=== PATIENT | male | born 1960 | race Caucasian/White ===

== ENCOUNTER 2023-02-26 19:36 | Observation (INO) | payer OTHER, SELFPAY ==
[2023-02-26] VITALS (9 sets, daily range): BP systolic 107–124; BP diastolic 59–68; PULSE 67–90; RESP 17–21; TEMP 36.8–37.8; O2SAT 91–97; BMI 25.7; BMI 28.1
--- NOTE | 2023-02-26 20:04 | DI.CT.S_ITS ---
PROCEDURE: CT ABDOMEN PELVIS W CON INDICATIONS: acute RLQ pain TECHNIQUE: After the administration of IV contrast, axial sections were acquired from the lung bases to the pubic symphysis. Coronal and sagittal reformats were performed. For radiation dose reduction, the following was used: automated exposure control, adjustment of mA and/or kV according to patient size. COMPARISON: None. FINDINGS: Image quality: Excellent. Lung bases: There is dependent atelectasis bilaterally. Heart: Heart is normal in size. ABDOMEN: Liver: No mass lesion. Gallbladder: The gallbladder is distended with multiple dependent stones, wall thickening, and pericholecystic fat stranding consistent with acute cholecystitis. Biliary ducts: No biliary ductal dilatation. Pancreas: Unremarkable. Spleen: Normal in size. Adrenal Glands: No adrenal nodules. Kidneys and Ureters: No hydronephrosis. Stomach and Bowel: Stomach, small bowel loops, and colon are normal in caliber and wall thickness. The appendix is normal. Peritoneum: No abnormal intraperitoneal fluid. No free air. Ventral Wall: No hernia. Abdominal Nodes: No retroperitoneal or mesenteric adenopathy by size criteria. Vessels: Aorta and inferior vena cava are normal in size. PELVIS: Pelvic Organs: Unremarkable. Bladder: Unremarkable. Pelvic Nodes: No enlarged lymph nodes. Miscellaneous: No inguinal hernias are seen. Bones: Visualized osseous structures demonstrate no suspicious focal lesions. IMPRESSION: 1. Gallbladder distention with multiple gallstones, wall thickening, and pericholecystic fat stranding consistent with acute cholecystitis. 2. No evidence of appendicitis. Findings discussed with Dr. Morgan on 02/26/2023 at 9:02 p.m.. Dictated by: Francois Donaldson M.D. on 02/26/2023 at 21:00 Approved by: Francois Donaldson M.D. on 02/26/2023 at 21:03
--- NOTE | 2023-02-26 21:02 | ED.GENADULT ---
HPI - General Adult General Chief complaint: Abdominal Pain Stated complaint: RLQ pain vomitting Time Seen by Provider: 02/26/23 20:03 Source: patient and EMS Mode of arrival: other History of Present Illness HPI narrative: 62-year-old gentleman who lives on [place] with no significant medical history and no prescription medications presents to the [place] [facility] complaining of right lower quadrant abdominal pain since 3:00 a.m. in the morning. He states that he is never had similar pain, not associated with fever, has been passing gas and having regular bowel movements. No nausea or vomiting. He notes no new foods, medications and no recent extensive travel. Blood work was done and notable for leukocytosis with white count at 20.8. Was felt that a CT scan would be most appropriate however was not available in [place] so has been flown to [facility] for further evaluation. Related Data Allergies Allergy/AdvReac Type Severity Reaction Status Date / Time No Known Drug Allergies Allergy Verified 02/26/23 21:30 Review of Systems Review of Systems Narrative: Pertinent positive and negative findings as per HPI Patient History Social History household members: spouse Smoking Status: Never smoker Smoking Status: Never smoker alcohol intake frequency: a few times a month Alcohol type: beer Substance Use Type: marijuana Exam Initial Vital Signs Initial Vital Signs: Vital Signs Pulse Rate 71 02/26/23 19:42 Pulse Oximetry 94 02/26/23 19:42 General: Healthy appearing, in mild distress. Able to give a complete and coherent history. Well-nourished well-developed HEENT: Moist mucous membranes, normal sclera with reactive pupils, Neck: No JVD, supple Respiratory: Lungs are clear to auscultation, no wheezing no rales no rhonchi. Full and symmetrical air movement Cardiac: Regular rate and rhythm no murmurs no bruits Abdomen: Soft, minimally tender at this time, no guarding,, good bowel tones, no flank pain Skin: Warm and dry, no rashes Neurologic: Grossly neurologically intact with no obvious asymmetries or abnormalities Extremities: No trauma, well perfused Psych: Cooperative, appropriate insight and affect Course Orders Ordered: Acetaminophen (Acetaminophen 325 Mg Tablet) 650 mg PO Q6H RAMONA Last Admin: 02/27/23 03:21 Dose: 650 mg Documented By: Admin: 02/26/23 23:05 Dose: Not Given Documented By: DL Celecoxib (Celecoxib 200 Mg Capsule) 200 mg PO BID [facility] Last Admin: 02/26/23 23:05 Dose: Not Given Documented By: DL Gabapentin (Gabapentin 300 Mg Capsule) 300 mg PO BID [facility] Last Admin: 02/26/23 23:06 Dose: Not Given Documented By: DL Hydromorphone HCl (Hydromorphone 0.5 Mg Inj) 0.5 mg IV Q2H PRN PRN Reason: Pain, Severe (7-10) Sodium Chloride (Normal Saline 0.45%) 1,000 mls @ 100 mls/hr IV CONT [facility] Last Admin: 02/27/23 01:06 Dose: 100 mls/hr Documented By: ILANA Piperacillin Sod/Tazobactam (Sod 3.375 gm/ Sodium Chloride) 100 mls @ 25 mls/hr IV Q8H [facility] Last Admin: 02/27/23 02:52 Dose: Not Given Documented By: ILANA Naloxone HCl (Naloxone 0.4 Mg/Ml Vial) 0.2 mg IV Q2MIN PRN PRN Reason: Opiate Reversal Ondansetron HCl (Ondansetron 4 Mg/2 Ml Inj) 4 mg IV Q8HR PRN PRN Reason: Nausea And Vomiting Oxycodone HCl (Oxycodone Ir 5 Mg Tablet) 5 mg PO Q3H PRN PRN Reason: Pain, Moderate (4-6) Discontinued Medications Piperacillin Sod/Tazobactam (Sod 4.5 gm/ Sodium Chloride) 100 mls @ 200 mls/hr IV NOW ONE Stop: 02/26/23 22:14 Last Infusion: 02/27/23 01:06 Dose: 0 mls/hr Documented By: Infusion: 02/26/23 22:39 Dose: 200 mls/hr Documented By: Admin: 02/26/23 22:15 Dose: 200 mls/hr Documented By: TEE Vital Signs Vital signs: Vital Signs - 8 hr 02/26/23 19:47 02/26/23 19:42 02/26/23 20:00 Temperature 98.4 F Pulse Rate 67 71 Respiratory Rate 17 Blood Pressure 124/67 116/68 Pulse Oximetry 94 94 Oxygen Delivery Method Room Air 02/26/23 20:00 02/26/23 20:30 02/26/23 20:30 Temperature Pulse Rate 70 72 Respiratory Rate 21 21 Blood Pressure 110/59 L Pulse Oximetry 94 91 Oxygen Delivery Method Room Air 02/26/23 21:00 02/26/23 21:00 Temperature Pulse Rate 68 Respiratory Rate 21 Blood Pressure 112/59 L Pulse Oximetry 93 Oxygen Delivery Method Room Air Medical Decision Making MDM Narrative Medical decision making narrative: CC: Significant abdominal pain, right lower quadrant for my initial evaluation without acute surgical abdomen. This is a new problem uncertain diagnosis with significant complicated prognosis potential Complicating co-morbidities: BPH Data collected from: patient, Social determinants of health that may influence the patients condition: Patient does live on Saturday so accessing medical care can be a bit more challenging Medical records reviewed: Notes including lab studies from [place] [facility] are reviewed Differential considered: Acute appendicitis, bowel obstruction, volvulus, cholecystitis Exam documented above, pertinent findings include: Minor tenderness in the right lower quadrant, appears fairly comfortable at this point and notes pain has been coming in waves. Lab Test results independently reviewed as above. Pertinent findings: Labs done prior to arrival include CBC with leukocytosis 20.8. 87.2% neutrophils. Are unremarkable. AST is 43, ALT is 34, alk-phos 68, bilirubin is 1.0. Lactic acid is normal at 1.6. Imaging studies independently reviewed: CT scan shows gallbladder distention with multiple gallstones, wall thickening and pericholecystic fat stranding consistent with acute cholecystitis. There is no biliary ductal dilatation. Pancreas is unremarkable. Consultations: Dr. Hansen, general surgery. She will admit the patient for his acute cholecystitis with anticipation of cholecystectomy tomorrow Treatments: Zosyn parenterally. This time he is not nauseated or hurting significantly and requests no additional pain medication Re-evaluations:10:14pm patient is updated. Informed of the diagnosis based on his CT scan. He was aware of lab abnormalities, leukocytosis with no significant liver function abnormalities, prior to arrival. Questions are answered and he is safe for transfer to the floor. Discharge Plan Departure Patient Disposition: Admitted as Observation Clinical Impression: Cholecystitis with cholelithiasis Qualifiers: Cholelithiasis location: gallbladder Cholecystitis acuity: acute Biliary obstruction: without biliary obstruction Qualified Code(s): K80.00 - Calculus of gallbladder with acute cholecystitis without obstruction Admit Date/Time: 02/26/23 21:10 Admit Provider: Ania Hansen
[2023-02-26 21:59] LABS: COVID19 -Nasal RAPID Negative (Negative)
[2023-02-26] MEDS: PIPERACILLIN/TAZO 4.5 GM in SODIUM CHLORIDE 0.9% 100 ML IV (22:15)
[2023-02-27] VITALS (14 sets, daily range): BP systolic 98–129; BP diastolic 57–70; PULSE 66–80; RESP 16–20; TEMP 36.8–38.6; O2SAT 91–96; BMI 28.1
--- NOTE | 2023-02-27 | PATH_ITS ---
[facility] Accession Number: [id number] No. of containers..01 Tissue . 01 Material submitted: . gallbladder - GALLBLADDER . 01 Diagnosis: Gallbladder, Cholecystectomy: Cholelithiasis with acute and chronic cholecystitis. Negative for dysplasia and malignancy. MRV 03/06/2023 1345 Local . 01 Electronically signed: . Ania Corral MD, Pathologist NPI- [id number] . 01 Gross description: . The specimen is received in formalin labeled with the patient's name, , and gallbladder, and consists of an intact gallbladder measuring 9.2 x 4.5 x 3.8 cm with salinas, smooth serosa and a rough and unremarkable hepatic surface. The cystic duct is received closed with a clamp, is inked blue, and no pericystic lymph node is identified. The lumen contains salinas viscous fluid and numerous sand-like calculi measuring less than 0.1 cm in greatest dimension, not grossly obstructing the cystic duct. The mucosa is salinas and diffusely denuded with green adherent material and no pinpoint yellow areas of discoloration, polyps, or lesions identified. The gardner average 0.5 cm thick. Surveying Or Spatial Science Technician sections to include the cystic duct margin and full-thickness sections are submitted in cassette A1. ([id number]) /FRR 03/02/2023 1626 Local . 01 Pathologist provided ICD-10: K81.2 . 01 CPT . 179805 Specimen Comment: A courtesy copy of this report has been sent to [phone] Performed at: 01 [facility] [address] [place] [address] [address], [place], [place] [id number] MD Francois Tellez MD Phone: [phone]
[2023-02-27] MEDS: SODIUM CHLORIDE 0.45% 1,000 ML 100 ML IV (01:06)
[2023-02-27] MEDS: ACETAMINOPHEN 325 MG TABLET 650 MG PO (03:21)
--- NOTE | 2023-02-27 03:26 | PC.NURSE ---
Received patient from ED in no distress. Patient awake alert and oriented, able to walk to bed without difficulty. IV zosyn infusing from ED.
[2023-02-27 06:14] LABS: Add Manual Diff / Slide Review NO; Basophils Absolute Auto 0 /uL (0-100); Basophils Percent Auto 0.2 % (0-2); Eosinophils Absolute Auto 0 /uL (0-450); Eosinophils Percent Auto 0.3 % (2-4); Hematocrit 34.6 % (41-53); Hemoglobin 11.8 g/dL (13.5-17.5); Lymphocytes Absolute Auto 1000 /uL (1100-4500); Mean Corpuscular HGB Conc 34.2 % (30-36); Mean Corpuscular Hemoglobin 31.3 PG (26-34); Mean Corpuscular Volume 91.4 fL (80-100); Monocytes Absolute Auto 1100 /uL (0-900); Monocytes Percent Auto 8.2 % (3-14); Neutrophils Absolute Auto 11500 /uL (1500-7000); Neutrophils Percent Auto 84.3 % (50-75); Platelet Count 148 X10^3/uL (150-400); Red Blood Cell Count 3.78 X10^6/uL (4.5-5.9); Red Cell Distribution Width 12.7 % (11.6-14.8); White Blood Cell Count 13.6 X10^3/uL (4.5-11.0)
[2023-02-27 06:25] LABS: Alanine Aminotransferase 162 IU/L (<50); Albumin 3.2 g/dL (3.5-5.0); Albumin Globulin Ratio 1.2 (1.0-2.8); Alkaline Phosphatase 75 U/L (38-126); Aspartate Aminotransferase 210 IU/L (17-59); Bilirubin Total 1.9 mg/dL (0.2-1.3); Blood Urea Nitrogen 13 mg/dL (9-20); Calcium 8.4 mg/dL (8.4-10.2); Carbon Dioxide 26 mmol/L (22-32); Chloride 104 mmol/L (98-107); Estimated Glomerular Filt Rate > 60 mL/min (>60); Globulin 2.7 g/dL (1.7-4.1); Glucose 135 mg/dL (80-110); HEMOLYSIS < 15 (0-50); Potassium 3.7 mmol/L (3.4-5.1); Sodium 135 mmol/L (137-145); Total Protein 5.9 g/dL (6.3-8.2)
[2023-02-27] MEDS: GABAPENTIN 300 MG CAPSULE PO ×2 (08:15→21:10)
[2023-02-27] MEDS: CELECOXIB 200 MG CAPSULE PO ×2 (08:15→21:10)
[2023-02-27] MEDS: PIPERACILLIN/TAZO 3.375 GM in SODIUM CHLORIDE 0.9% 100 ML IV ×2 (09:38→18:26)
--- NOTE | 2023-02-27 11:45 | PM.HP.1 ---
History of Present Illness History of Present Illness Date Patient Seen: 02/27/23 Time Patient Seen: 07:00 Chief complaint: RLQ pain vomitting Narrative: 36 hrs of RUQ pain and nausea. Transferred from [place] due to no CT scan available. Work up c/w acute mariia. no previous episodes. Pain is improved but 7-10 when active. [facility] Social History household members: spouse Smoking Status: Never smoker Meds Home Medications and Allergies Home Medications Medication Instructions Recorded Confirmed Type No Known Home Medications 02/27/23 02/27/23 History Allergies Allergy/AdvReac Type Severity Reaction Status Date / Time No Known Drug Allergies Allergy Verified 02/26/23 21:30 Review of Systems Review of Systems ROS: Yes All systems reviewed with the patient and are negative except as otherwise documented Exam Vital Signs (past 8 hours): - 02/27/23 07:00 Temperature 98.2 F Pulse Rate 72 Respiratory Rate 16 Blood Pressure 98/57 L Pulse Oximetry 95 Oxygen Flow Rate 0 Oxygen Delivery Method Room Air Oxygen Flow Rate 0 Narrative Exam Narrative: vacationing from [place], return flight from [place] tomorrow night. Const General: cooperative and comfortable Nutritional Appearance: average body habitus Orientation: alert, awake and oriented x3 HENMT Head: normal to inspection, normocephalic and atraumatic Ears: hearing grossly normal bilaterally Eyes General: appearance normal, both eyes and all related structures Sclera: sclerae normal Neck Neck: trachea midline Chest Chest: normal inspection of the chest Resp Effort & Inspection: normal respiratory effort and able to speak in complete sentences Cardio Rate: regular rate Rhythm: regular rhythm GI Palpation: soft and tender (RUQ tenderness to palpation) Skin General: no rashes or lesions noted and turgor normal Neuro General: patient alert, patient awake and patient oriented x3 Cognition: normal cognition Psych Appearance: grossly normal Mental Status: mental status grossly normal Affect: normal affect Attitude: cooperative Judgment: judgment good Objective Labs 02/27/23 06:03 02/27/23 06:03 Labs: Laboratory Results - last 24 hr 02/26/23 02/27/23 02/27/23 21:42 06:03 06:03 WBC 13.6 H RBC 3.78 L Hgb 11.8 L Hct 34.6 L MCV 91.4 MCH 31.3 MCHC 34.2 RDW 12.7 Plt Count 148 L Neut % (Auto) 84.3 H Lymph % (Auto) 7.0 L [place] % (Auto) 8.2 Eos % (Auto) 0.3 L Baso % (Auto) 0.2 Neut # (Auto) 91221 H Lymph # (Auto) 1000 L [place] # (Auto) 1100 H Eos # (Auto) 0 Baso # (Auto) 0 Sodium 135 L Potassium 3.7 Chloride 104 Carbon Dioxide 26 BUN 13 Creatinine 1.00 Estimated GFR > 60 BUN/Creatinine Ratio 13.0 Glucose 135 H Calcium 8.4 Total Bilirubin 1.9 H AST 210 H ALT 162 H Alkaline Phosphatase 75 Total Protein 5.9 L Albumin 3.2 L Globulin 2.7 Albumin/Globulin Ratio 1.2 SARS-CoV-2 (PCR) Negative Assessment & Plan Assessment & Plan narrative: Acute cholecystitis Plan: Lap Mariia today. Risk and benefits discussed to include bile leaks and injury to surrounding structures. Restrictions post op of 2 weeks no heavy lifting >15 lbs. He understands and agrees to proceed. COVID-19 COVID-19 status: Negative Time Spent With Patient Time with patient: 30 to 49 minutes with 50% spent counseling/coordinating care
--- NOTE | 2023-02-27 14:20 | CM.DANOTE ---
Addendum entered by KJ Rubio 02/27/23 14:21: Initial DCP Assessment Note Patient presented with RLQ pain and vomiting, admitted OBS for nilesh francis/ Dr Hansen. Discharge home today or tomorrow. No needs from this CM team anticipated JW Original Note: Discharge Planning/Care Management CM Discharge Assessment Start: 02/27/23 14:15 Freq: Status: Active Protocol: Document 02/27/23 14:15 EBONI (Rec: 02/27/23 14:20 EBONI [id number]) Discharge Planning Assessment Assigned Small Engine Trainer KJ Marino DPOA/Assigned Designee Name rickie Mahoney Contact Information none listed Advance Directives? No History Provided By Patient,Medical Record Prior Living Arrangements House Household Members spouse Type of transporation used prior to Drives own vehicle admit Comment Lives in [place], [place]. [facility] Independent with ADL's Yes Is patient alert and oriented? Yes Barriers to Discharge No Comment Discharge home, patient plans to follow up with outpatient providers once back home in [place] Discharge Plan Home Transportation Arrangement Family Referrals Initiated None needed
--- NOTE | 2023-02-27 16:48 | PC.NURSE ---
Pt to OR via bed with chart by OR personnel.
[2023-02-27] MEDS: BUPIVACAINE 0.5% (PF) 30 ML, EPINEPHrine 0.15 MG INJ (19:08)
--- NOTE | 2023-02-27 19:15 | SUR.OPER ---
Supine on padded OR bed, head on pillow, safety belt at thigh, left arm padded and tucked at side. Right arm secured on padded arm board <90 degrees abduction. Legs uncrossed. Padded footboard in place. Tape over blanket to secure lower legs.
--- NOTE | 2023-02-27 19:43 | PM.OP.1 ---
Operative Date/Time/Diagnoses Date of procedure: 02/27/23 Time of procedure: 19:43 Pre-op diagnosis: Acute cholecystitis, umbilical hernia Post-op diagnosis: same Procedure & Clinicians Procedure: Laparoscopic cholecystectomy with umbilical hernia repair Same procedure as scheduled: Yes Indications: Acute cholecystitis umbilical hernia Surgeon: Ania Hansen Click Yes if Unassisted: Yes Anesthesia Type: General Operative Notes Findings: Incarcerated umbilical hernia with fat, acute cholecystitis Closure Type: primary Specimen(s): other (Gallbladder) Estimated Blood Loss (mL): 20 Blood products transfused: none Procedure in detail: Preop diagnosis: Acute cholecystitis and incarcerated umbilical hernia Postop diagnosis: Same Operative procedure: Laparoscopic cholecystectomy with primary repair of umbilical hernia Surgeon: Samantha Hansen MD Findings: Acute cholecystitis, umbilical hernia incarcerated with fat Procedure: Patient placed in a supine position. Prepped and draped in sterile fashion to expose her abdomen. Infraumbilical port site was placed using open technique a 12 mm port. Insufflation began all other ports were placed under direct vision including a 10 mm port in the midepigastrium and a 5 mm port x2 in the right upper lateral abdomen. Of note the umbilical hernia was addressed at the time of umbilical port placement by reducing the hernia and widening the defect to accept port placement. Gallbladder was grasped and after being decompressed with electrocautery was lifted cephalad for exposure. Cystic duct was identified, clipped once distally twice proximally and transected. Cystic artery was identified clipped once distally once proximally and transected along with a 2nd branch. Gallbladder is removed from the fossa with electrocautery and blunt dissection. Hemostasis was excellent at the end of the procedure. There was spillage of bile but no stones into the abdomen. Abdomen was suctioned cleared and then irrigated with irrigation removed prior to closure. Gallbladder itself was placed into an Endo-Catch bag pulled through the infraumbilical port site intact with no further spillage. Umbilical hernia defect was closed with interrupted 2-0 Vicryl. Skin was closed with a running and or interrupted 4-0 Vicryl. Steri-Strips and sterile dressings were placed. Patient was awakened, extubated, taken to recovery room in stable condition. Needle, instrument, sponge counts were correct. Specimen: Gallbladder Blood loss: 20 mL Post-operative Condition: stable Disposition: PACU
[2023-02-27] MEDS: ACETAMINOPHEN 1,000 MG/100 ML IV (19:52)
[2023-02-27] MEDS: LACTATED RINGERS 1,000 ML 120 ML IV (20:22)
--- NOTE | 2023-02-27 21:06 | SUR.PHASEI ---
Pt transferred to Room 2003 on 4L oxygen via NC. Pt o2 sat priori to transfer on 4l 93-94%. pt using IS up to 1500ml. Lungs clear throughout, Denied SOB. Good cough. On arrival patient 92% on 5l. GREG Luna notified with transfer and above information. No new orders at this time. Continue with IS and continuous pulse oximitry through the night. SBAr called to Claudine and then update assessment togheter at bedside.
--- NOTE | 2023-02-27 22:19 | PC.NURSE ---
Pt. returned from PACU. Awake, alert & denied any pain & nausea. X4 lap sites, umbilical dressing with small amount of bloody drainage. 5 liters 02/NC SPO2 91-93 %, rechecked sat. 95% turned 02 down to 3 liters & SPO2 93%. Will cont. POC & monitor.
[2023-02-28] MEDS: PIPERACILLIN/TAZO 3.375 GM in SODIUM CHLORIDE 0.9% 100 ML IV (02:05)
[2023-02-28] MEDS: SODIUM CHLORIDE 0.9% 250 ML 21 ML IV (02:06)
[2023-02-28] MEDS: SODIUM CHLORIDE 0.9% FLUSH 10 ML IV ×2 (02:07→09:35)
[2023-02-28 03:22] VITALS: BP 116/66; PULSE 66; RESP 18; TEMP 37.2; O2SAT 95
[2023-02-28 06:48] LABS: Add Manual Diff / Slide Review NO; Basophils Absolute Auto 0 /uL (0-100); Basophils Percent Auto 0.1 % (0-2); Eosinophils Absolute Auto 0 /uL (0-450); Hematocrit 36.3 % (41-53); Hemoglobin 12.2 g/dL (13.5-17.5); Lymphocytes Absolute Auto 600 /uL (1100-4500); Lymphocytes Percent Auto 4.1 % (25-40); Mean Corpuscular HGB Conc 33.6 % (30-36); Mean Corpuscular Hemoglobin 31.3 PG (26-34); Mean Corpuscular Volume 93.1 fL (80-100); Monocytes Absolute Auto 1000 /uL (0-900); Monocytes Percent Auto 6.6 % (3-14); Neutrophils Absolute Auto 13200 /uL (1500-7000); Neutrophils Percent Auto 89.2 % (50-75); Platelet Count 140 X10^3/uL (150-400); White Blood Cell Count 14.8 X10^3/uL (4.5-11.0)
[2023-02-28 06:56] LABS: Alanine Aminotransferase 129 IU/L (<50); Albumin 3.3 g/dL (3.5-5.0); Albumin Globulin Ratio 1.2 (1.0-2.8); Alkaline Phosphatase 100 U/L (38-126); Aspartate Aminotransferase 97 IU/L (17-59); BUN Creatinine Ratio 13.1 (6-22); Bilirubin Total 1.5 mg/dL (0.2-1.3); Blood Urea Nitrogen 13 mg/dL (9-20); Calcium 8.4 mg/dL (8.4-10.2); Carbon Dioxide 27 mmol/L (22-32); Chloride 105 mmol/L (98-107); Estimated Glomerular Filt Rate > 60 mL/min (>60); Globulin 2.8 g/dL (1.7-4.1); Glucose 162 mg/dL (80-110); HEMOLYSIS < 15 (0-50); Potassium 4.1 mmol/L (3.4-5.1); Sodium 137 mmol/L (137-145); Total Protein 6.1 g/dL (6.3-8.2)
[2023-02-28 08:00] VITALS: BP 105/63; PULSE 63; RESP 16; TEMP 36.6; O2SAT 96
[2023-02-28] MEDS: AMOXICILLIN/CLAV 875/125 MG 1 TAB PO (09:34)
[2023-02-28] MEDS: CELECOXIB 200 MG CAPSULE PO (09:34)
[2023-02-28] MEDS: GABAPENTIN 300 MG CAPSULE PO (09:34)
--- NOTE | 2023-02-28 09:45 | PM.DS.1 ---
History of Present Illness History of Present Illness Date Patient Seen: 02/28/23 Time Patient Seen: 09:45 Chief complaint: RLQ pain vomitting Narrative: 36 hrs of RUQ pain and nausea. Transferred from [place] due to no CT scan available. Work up c/w acute mariia. no previous episodes. Pain is improved but 7-10 when active. Discharge Providers Provider Date of admission: 02/26/23 21:10 Discharge Date: 02/28/23 Discharge provider: Ania Hansen MD Summary Hospital Course Discharge Diagnosis: Acute mariia, s/p lap mariia Hospital Course: antibiotics and Lap mariia. No complications Status at Discharge Cognitive/behavioral status at discharge: at baseline, oriented Functional status at discharge: independent ambulation Overall status at discharge: patient is progressing back to baseline Time Spent with Patient Time spent: Less than 30 minutes Exam Vital Signs (past 8 hours): - 02/28/23 03:22 Temperature 98.9 F Pulse Rate 66 Respiratory Rate 18 Blood Pressure 116/66 Pulse Oximetry 95 Oxygen Flow Rate 3 Oxygen Delivery Method Nasal Cannula Oxygen Flow Rate 3 Narrative Exam Narrative: Moving well. Appears well. Abdomen benign. Objective Labs 02/28/23 06:20 02/28/23 06:20 Labs: Laboratory Results - last 24 hr 02/28/23 02/28/23 06:20 06:20 WBC 14.8 H RBC 3.90 L Hgb 12.2 L Hct 36.3 L MCV 93.1 MCH 31.3 MCHC 33.6 RDW 13.0 Plt Count 140 L Neut % (Auto) 89.2 H Lymph % (Auto) 4.1 L [place] % (Auto) 6.6 Eos % (Auto) 0.0 L Baso % (Auto) 0.1 Neut # (Auto) 62565 H Lymph # (Auto) 600 L [place] # (Auto) 1000 H Eos # (Auto) 0 Baso # (Auto) 0 Sodium 137 Potassium 4.1 Chloride 105 Carbon Dioxide 27 BUN 13 Creatinine 0.99 Estimated GFR > 60 BUN/Creatinine Ratio 13.1 Glucose 162 H Calcium 8.4 Total Bilirubin 1.5 H AST 97 H ALT 129 H Alkaline Phosphatase 100 Total Protein 6.1 L Albumin 3.3 L Globulin 2.8 Albumin/Globulin Ratio 1.2 PFSH Social History household members: spouse Smoking Status: Never smoker alcohol intake: current Discharge Assessment & Plan Assessment and Plan Assessment: Acute mariia, s/p lap mariia Plan of Treatment: Home with 5 days augmentin Follow up with PCP Wear compression stockings on plane, pump feet for circulation Discharge Plan Discharge Plan Patient Disposition: Home Discharge orders & Medications Prescriptions: New celecoxib [Celebrex] 200 mg Capsule 200 mg PO BID Qty: 20 0RF gabapentin 300 mg Capsule 300 mg PO BID Qty: 30 0RF amoxicillin-pot clavulanate 875-125 mg Tablet 1 tab PO BID Qty: 10 0RF oxycodone 5 mg Tablet 5 mg PO Q3H PRN (Reason: Pain, Moderate (4-6)) Qty: 20 0RF Follow up/Referrals: Miscellaneous,DoctorMD [Non-Staff] - Diet/Activity/Treatments Diet: Diet as Tolerated Skin/Wound/Dressing Care Report to your healthcare provider any signs of infection, such as:: chills, fever, increased pain and unusual drainage Visit Report/Discharge Packet Instructions: DI for Laparoscopy Stand Alone Forms: Patient Portal/API, Stroke Signs & Symptoms, Surgery Discharge Discharge Data Attending Provider: Ania Hansen Admit Date/Time: 02/26/23 21:10
--- NOTE | 2023-02-28 09:47 | P.PN_ITS ---
Subjective Subjective Date Patient Seen: 02/28/23 Time Patient Seen: 09:47 Interval history: feels ready to go home Exam Vital Signs (past 8 hours): - 02/28/23 03:22 Temperature 98.9 F Pulse Rate 66 Respiratory Rate 18 Blood Pressure 116/66 Pulse Oximetry 95 Oxygen Flow Rate 3 Oxygen Delivery Method Nasal Cannula Oxygen Flow Rate 3 Narrative Exam Narrative: No post op complications Objective Labs 02/28/23 06:20 02/28/23 06:20 Labs: Laboratory Results - last 24 hr 02/28/23 02/28/23 06:20 06:20 WBC 14.8 H RBC 3.90 L Hgb 12.2 L Hct 36.3 L MCV 93.1 MCH 31.3 MCHC 33.6 RDW 13.0 Plt Count 140 L Neut % (Auto) 89.2 H Lymph % (Auto) 4.1 L [place] % (Auto) 6.6 Eos % (Auto) 0.0 L Baso % (Auto) 0.1 Neut # (Auto) 72279 H Lymph # (Auto) 600 L [place] # (Auto) 1000 H Eos # (Auto) 0 Baso # (Auto) 0 Sodium 137 Potassium 4.1 Chloride 105 Carbon Dioxide 27 BUN 13 Creatinine 0.99 Estimated GFR > 60 BUN/Creatinine Ratio 13.1 Glucose 162 H Calcium 8.4 Total Bilirubin 1.5 H AST 97 H ALT 129 H Alkaline Phosphatase 100 Total Protein 6.1 L Albumin 3.3 L Globulin 2.8 Albumin/Globulin Ratio 1.2 PFSH Social History household members: spouse Smoking Status: Never smoker alcohol intake: current Assessment & Plan Post-op Postoperative Procedures: Procedures Operation Date: 02/27/23 16:15 Actual Procedure Side Surgeon p Laparoscopic Cholecystectomy Ania Hansen MD Postoperative status: doing well Postoperative plan: routine post-op care Postoperative plan narrative: discharge with 5 days Augmentin Follow up with PCP Time Spent With Patient Time with patient: 15-24 minutes
--- NOTE | 2023-02-28 11:42 | PC.NURSE ---
Pt up ad micaela in room Denies discomfort 4 lap sites CDI D/C orders received, HL D/C intact. Home instructions and RX given to pt Pt escorted via W/C by staff to waiteing vehicle D/C in stable post op coure.
--- NOTE | 2023-02-28 12:19 | CM.DPNOTE ---
DC Note Discharge home today, flying back to [place] No needs from this CM tem identified JW
== END 2023-02-28 11:45 | disposition home or self-care (01) ==
LOC: ED 20:47 → AC 21:11
PROVIDERS: Admitting Provider Surgery; Emergency Provider Emergency Medicine; Visit Provider Surgery
PROC: 0FT44ZZ Resection of Gallbladder, Percutaneous Endoscopic Approach (ICD-10-PCS; CPT 47562; principal; 2023-02-27 16:15)
DX: K81.0 Acute cholecystitis (principal); K42.9 Umbilical hernia without obstruction or gangrene; Z20.822 Contact with and (suspected) exposure to COVID-19
CPT/HCPCS: 47562; 36415; 74177; 80053; 85025; 87635; 96365; 96366; 96375; 99221; 99284; C9803; G0378; J0131; J0171; J1100; J1885; J2405; J2543; J3010; J7050; Q9967